=== PATIENT | male | born 1950 | race Two or more races ===

== ENCOUNTER 2016-10-18 14:38 | Emergency (ER) | payer BC ==
[2016-10-18] MEDS ORDERED: Ondansetron INJ* 2 MG/ML VIAL IV ONE (16:40)
[2016-10-18] MEDS ORDERED: NS 0.9% 1000 ML* 1,000 ML IV ONE (16:40)
[2016-10-18] MEDS ORDERED: Famotidine IV* 10 MG/ML 2 ML (20 mg) IV SLOW PU ONE (16:41)
--- NOTE | 2016-10-18 17:14 | RAD ---
INDICATION: Abdominal pain. COMPARISON: There are no prior studies available for comparison. TECHNIQUE: Supine and upright views of the abdomen were obtained. FINDINGS: The small bowel and colon appear nondistended. No free intraperitoneal air is seen. IMPRESSION: NO EVIDENCE FOR ACUTE FINDING.
[2016-10-18 17:18] LABS: Hematocrit 46 % (42-52); Hemoglobin 15.8 g/dl (14.0-18.0); Mean Corpuscular HGB Conc 34 g/dl (31-36); Mean Corpuscular Hemoglobin 32 pg (27-31); Mean Corpuscular Volume 93 fL (80-94); Mean Platelet Volume 7 um3 (7.4-10.4); Red Blood Count 4.96 10^6/ul (4.0-5.4); Red Cell Distribution Width 13 % (10.5-15); White Blood Count 7.4 10^3/ul (3.5-10.8)
[2016-10-18 17:21] LABS: Urine Bilirubin Negative (Negative); Urine Glucose Negative (Negative); Urine Nitrite Negative (Negative)
[2016-10-18 17:35] LABS: Albumin 4.3 g/dL (3.2-5.2); BUN/Creatinine Ratio 17.5 (8-20); C Reactive Protein 28.28 mg/L (< 5.00); Calcium 9.4 mg/dL (8.6-10.3); EGFR African American 78.4 (>60); Globulin 2.8 g/dL (2-4); Magnesium 2.1 mg/dL (1.9-2.7); Potassium 3.8 mmol/L (3.5-5.0); Total Bilirubin 0.7 mg/dL (0.2-1.0); Total Protein 7.1 g/dL (6.4-8.9)
[2016-10-18 19:09] VITALS: BP 136/97
--- NOTE | 2016-10-19 17:32 | ED ---
Mary Gore Thomas, scribed for Ronny Kunz MD on 10/18/16 at 1644 . Abdominal Pain/Male - HPI Summary HPI Summary: The pt is a 66 y/o M presenting to the ED c/o lower abd pain that began last night. The pain is described as bloating. The pain is rated 7/10. The pain is aggravated and alleviated by nothing. The patient has treated the pain with his Rizatripan prior to arrival. He also took gas medications to no relief of pain. Pt additionally c/o JEFF and nausea. Pt denies diarrhea, constipation, fevers, vomiting, chills, CP, and SOB. PMHx: polymyalgia rheumatic and migraines. PSHx: total knee replacement, shoulder repair. SHx: no smoking, occasional alcohol use , no illicit drug use. FHx: [place]. He has been taking normal BMs recently. He denies eating any unusual foods recently. He has never experienced symptoms like these before. 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 - History of Current Complaint Chief Complaint: EDAbdPain Stated Complaint: ABD PAIN, Time Seen by Provider: 10/18/16 16:23 Hx Obtained From: Patient, Family/Director Of Cardiac Cath Lab - accompanied by Onset/Duration: Lasting Days - onset yesterday, Still Present Timing: Constant Pain Intensity: 7 Pain Scale Used: 0-10 Numeric Location: Other - lower abd Radiates: No Character: Cramping Aggravating Factor(s): Nothing Alleviating Factor(s): Nothing Associated Signs And Symptoms: Positive: Nausea, Other - POS: JEFF; NEG: chills, SOB. Negative: Fever, Chest Pain, Constipation, Vomiting, Diarrhea - Allergies/Home Medications Allergies/Adverse Reactions: Allergies Allergy/AdvReac Type Severity Reaction Status Date / Time Prochlorperazine Allergy Tingling Verified 10/18/16 14:43 [From Compazine] PMH/Surg Hx/FS Hx/Imm Hx Previously Healthy: No Endocrine/Hematology History: Denies: Hx Diabetes, Hx Thyroid Disease Cardiovascular History: Denies: Hx Angina, Hx Hypertension Respiratory History: Denies: Hx Chronic Obstructive Pulmonary Disease (COPD) Musculoskeletal History: Reports: Other Musculoskeletal History - Hx polymyalgia rheumatica Denies: Hx Rheumatoid Arthritis, Hx Osteoporosis Neurological History: Reports: Hx Migraine - Surgical History Surgery Procedure, Year, and Place: knee replacement, shoulder repair Infectious Disease History: No Infectious Disease History: Denies: Hx Clostridium Difficile, Hx Hepatitis, Hx Human Immunodeficiency Virus (HIV), Hx of Known/Suspected MRSA, Hx Shingles, Hx Tuberculosis, Traveled Outside the US in Last 30 Days - Family History Known Family History: Positive: Other - POS: [place] - Social History Alcohol Use: Occasionally Substance Use Type: Reports: None Smoking Status (MU): Never Smoked Tobacco Review of Systems Negative: Chills Negative: Chest Pain Negative: Shortness Of Breath Positive: Abdominal Pain - 7/10, cramping, onset last night, Nausea. Negative: Vomiting, Diarrhea, Other - NEG: constipation Positive: Headache All Other Systems Reviewed And Are Negative: Yes Physical Exam - Summary Physical Exam Summary: VITAL SIGNS: Reviewed. GENERAL: Patient is a well-developed and nourished male who is lying comfortable in the stretcher. ~Patient is not in any acute respiratory distress. HEAD AND FACE: Normocephalic and atraumatic. EYES: PERRLA, EOMI x 2, No injected conjunctiva. EARS: Hearing grossly intact. Ear canals and tympanic membranes are WNL. MOUTH: Oropharynx within normal limits. NECK: Supple, trachea is midline, no adenopathy, no JVD. CHEST: Symmetric, no tenderness at palpation LUNGS: Clear to auscultation bilaterally. No wheezing or crackles. CVS: RRR, S1 and S2 present, no murmurs or gallops appreciated. ABDOMEN: Soft, non-tender. No signs of distention. Positive bowel sounds. No rebound no guarding, and no masses palpated. No abdominal bruit or pulsations. EXTREMITIES: FROM in all major joints, no edema, no cyanosis or clubbing. NEURO: Alert and oriented x 3. No acute neurological deficits. Speech is normal. SKIN: Dry and warm Triage Information Reviewed: Yes Vital Signs On Initial Exam: Initial Vitals Temp Pulse Resp BP Pulse Ox 97.7 F 68 16 158/90 95 10/18/16 14:43 10/18/16 14:43 10/18/16 14:43 10/18/16 14:43 10/18/16 14:43 Vital Signs Reviewed: Yes Diagnostics - Vital Signs Vital Signs Temp Pulse Resp BP Pulse Ox 10/18/16 16:11 97.6 F 63 16 186/91 93 10/18/16 14:43 97.7 F 68 16 158/90 95 - Laboratory Lab Results: Lab Results 10/18/16 10/18/16 10/18/16 Range/Units 17:06 17:06 17:06 WBC 7.4 (3.5-10.8) 10^3/ul RBC 4.96 (4.0-5.4) 10^6/ul Hgb 15.8 (14.0-18.0) g/dl Hct 46 (42-52) % MCV 93 (80-94) fL MCH 32 H (27-31) pg MCHC 34 (31-36) g/dl RDW 13 (10.5-15) % Plt Count 149 L (150-450) 10^3/ul MPV 7 L (7.4-10.4) um3 Neut % (Auto) 77.3 (38-83) % Lymph % (Auto) 12.0 L (25-47) % Kimble % (Auto) 8.7 (1-9) % Eos % (Auto) 1.3 (0-6) % Baso % (Auto) 0.7 (0-2) % Absolute Neuts (auto) 5.7 (1.5-7.7) 10^3/ul Absolute Lymphs (auto) 0.9 L (1.0-4.8) 10^3/ul Absolute Monos (auto) 0.6 (0-0.8) 10^3/ul Absolute Eos (auto) 0.1 (0-0.6) 10^3/ul Absolute Basos (auto) 0.1 (0-0.2) 10^3/ul Absolute Nucleated RBC 0.01 10^3/ul Nucleated RBC % 0.2 Sodium 139 (133-145) mmol/L Potassium 3.8 (3.5-5.0) mmol/L Chloride 105 (101-111) mmol/L Carbon Dioxide 28 (22-32) mmol/L Anion Gap 6 (2-11) mmol/L BUN 21 (6-24) mg/dL Creatinine 1.20 H (0.67-1.17) mg/dL Est GFR ( Amer) 78.4 (>60) Est GFR (Non-Af Amer) 61.0 (>60) BUN/Creatinine Ratio 17.5 (8-20) Glucose 99 (70-100) mg/dL Lactic Acid 0.8 (0.5-2.0) mmol/L Calcium 9.4 (8.6-10.3) mg/dL Magnesium 2.1 (1.9-2.7) mg/dL Total Bilirubin 0.70 (0.2-1.0) mg/dL AST 25 (13-39) U/L ALT 23 (7-52) U/L Alkaline Phosphatase 64 (34-104) U/L Troponin I 0.00 (<0.04) ng/mL C-Reactive Protein 28.28 H (< 5.00) mg/L B-Natriuretic Peptide ( - 100) pg/mL Total Protein 7.1 (6.4-8.9) g/dL Albumin 4.3 (3.2-5.2) g/dL Globulin 2.8 (2-4) g/dL Albumin/Globulin Ratio 1.5 (1-3) Amylase 27 L (29-103) U/L Lipase 13 (11.0-82.0) U/L Urine Color Urine Appearance Urine pH (5-9) Ur Specific [place] (1.010-1.030) Urine Protein (Negative) Urine Ketones (Negative) Urine Blood (Negative) Urine Nitrate (Negative) Urine Bilirubin (Negative) Urine Urobilinogen (Negative) Ur Leukocyte Esterase (Negative) Urine Glucose (Negative) 10/18/16 10/18/16 Range/Units 17:06 17:09 WBC (3.5-10.8) 10^3/ul RBC (4.0-5.4) 10^6/ul Hgb (14.0-18.0) g/dl Hct (42-52) % MCV (80-94) fL MCH (27-31) pg MCHC (31-36) g/dl RDW (10.5-15) % Plt Count (150-450) 10^3/ul MPV (7.4-10.4) um3 Neut % (Auto) (38-83) % Lymph % (Auto) (25-47) % Kimble % (Auto) (1-9) % Eos % (Auto) (0-6) % Baso % (Auto) (0-2) % Absolute Neuts (auto) (1.5-7.7) 10^3/ul Absolute Lymphs (auto) (1.0-4.8) 10^3/ul Absolute Monos (auto) (0-0.8) 10^3/ul Absolute Eos (auto) (0-0.6) 10^3/ul Absolute Basos (auto) (0-0.2) 10^3/ul Absolute Nucleated RBC 10^3/ul Nucleated RBC % Sodium (133-145) mmol/L Potassium (3.5-5.0) mmol/L Chloride (101-111) mmol/L Carbon Dioxide (22-32) mmol/L Anion Gap (2-11) mmol/L BUN (6-24) mg/dL Creatinine (0.67-1.17) mg/dL Est GFR ( Amer) (>60) Est GFR (Non-Af Amer) (>60) BUN/Creatinine Ratio (8-20) Glucose (70-100) mg/dL Lactic Acid (0.5-2.0) mmol/L Calcium (8.6-10.3) mg/dL Magnesium (1.9-2.7) mg/dL Total Bilirubin (0.2-1.0) mg/dL AST (13-39) U/L ALT (7-52) U/L Alkaline Phosphatase (34-104) U/L Troponin I (<0.04) ng/mL C-Reactive Protein (< 5.00) mg/L B-Natriuretic Peptide 30 ( - 100) pg/mL Total Protein (6.4-8.9) g/dL Albumin (3.2-5.2) g/dL Globulin (2-4) g/dL Albumin/Globulin Ratio (1-3) Amylase (29-103) U/L Lipase (11.0-82.0) U/L Urine Color Yellow Urine Appearance Clear Urine pH 6.0 (5-9) Ur Specific [place] 1.013 (1.010-1.030) Urine Protein Negative (Negative) Urine Ketones Negative (Negative) Urine Blood Negative (Negative) Urine Nitrate Negative (Negative) Urine Bilirubin Negative (Negative) Urine Urobilinogen Negative (Negative) Ur Leukocyte Esterase Negative (Negative) Urine Glucose Negative (Negative) Result Diagrams: 10/18/16 17:06 10/18/16 17:06 Lab Statement: Any lab studies that have been ordered have been reviewed, and results considered in the medical decision making process. - Radiology XR Abdomen Xray Interpretation: No Acute Changes - No evidence for acute finding Radiology Interpretation Completed By: Radiologist - EKG 17:11 Cardiac Rate: Bradycardia - 56 BPM EKG Interpretation: Sinus bradycardia with no ST elevations. Abdominal Pain Fem Course/Dx - Course Assessment/Plan: The pt is a 66 y/o M presenting to the ED c/o lower abd pain that began last night. The pain is described as bloating. The pain is rated 7/ 10. The pain is aggravated and alleviated by nothing. The patient has treated the pain with his Rizatripan prior to arrival. He also took gas medications to no relief of pain. Pt additionally c/o JEFF and nausea. Pt denies diarrhea, constipation, fevers, vomiting, chills, CP, and SOB. PMHx: polymyalgia rheumatic and migraines. PSHx: total knee replacement, shoulder repair. SHx: no smoking, occasional alcohol use, no illicit drug use. FHx: [place]. He has been taking normal BMs recently. He denies eating any unusual foods recently. He has never experienced symptoms like these before. 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 The patients tests are without significant abnormality except creatinine 1.20 and CRP 28.28. The UA is negative and the Abdominal XR is negative. In the ED course, the patient was given IV fluids, Pepcid for indigestion, and Zofran for nausea. After these medications, the patients symptoms have improved. I discussed all the findings and test results with the patient. Patient was instructed to return to the emergency room immediately if any of the symptoms return or worsens. Plan of care was discussed with the patient and understands and agrees. All questions were answered at patient satisfaction. There were no further complaints or concerns. - Diagnoses Provider Diagnoses: Abdominal pain, Nausea Discharge - Discharge Plan Condition: Stable Disposition: HOME Prescriptions: Ondansetron TAB* [Zofran 4 MG Tab*] 4 mg PO Q6H PRN #12 tab PRN Reason: Vomiting Pantoprazole TAB (NF) [Protonix TAB (NF)] 40 mg PO DAILY #14 tab Patient Education Materials: Abdominal Pain (ED), Acute Nausea and Vomiting (ED ) Referrals: Yaw Blair MD [Primary Care Provider] - 3 Days The documentation as recorded by the Mary rose Thomas accurately reflects the service I personally performed and the decisions made by me, Ronny Kunz MD.
== END 2016-10-18 19:08 | disposition home or self-care (01) ==
LOC: ED 14:38
DX: R10.30 Lower abdominal pain, unspecified (principal); R11.0 Nausea; R00.1 Bradycardia, unspecified; R51 Headache; M35.3 Polymyalgia rheumatica; Z96.659 Presence of unspecified artificial knee joint
CPT/HCPCS: 36415; 74020; 80053; 81003; 82150; 83605; 83690; 83735; 83880; 84484; 85025; 86140; 93005; 96361; 96374; 96375; 99283; J2405

== ENCOUNTER 2017-07-28 06:37 | Day surgery (SDC) | payer BC ==
[2017-07-28] MEDS ORDERED: Ketorolac INJ* 30 MG/ML 1 ML VIAL IV PUSH ONE (07:06)
[2017-07-28] MEDS ORDERED: Ondansetron ODT TAB* 4 MG PO ONE (07:06)
[2017-07-28] MEDS ORDERED: NS 0.9% 1000 ML* 1,000 ML IV ONE ×3 (07:07→09:49)
--- NOTE | 2017-07-28 07:11 | ED ---
GI/ HPI - HPI Summary HPI Summary: 66-year-old male presents with abdominal pain for the past couple hours. He states that [place] He states his pain seemed to resolve pain but he never saw that he passed the stone. He states he woke up this morning with intense pain in his lower abdomen. He states pain has since decreased without taking anything. He denies any blood in his urine. Denies any dysuria. Denies any fevers. He admits to nausea vomiting. Denies any diarrhea constipation. He denies any chest pain shortness breath. This is his first kidney stone. Kidney stone was 4 mm. - History of Current Complaint Chief Complaint: EDAbdPain Time Seen by Provider: 07/28/17 06:51 Stated Complaint: FLANK PAIN Pain Intensity: 7 - Allergy/Home Medications Allergies/Adverse Reactions: Allergies Allergy/AdvReac Type Severity Reaction Status Date / Time prochlorperazine Allergy Tingling Verified 07/28/17 07:26 [From Compazine] Home Medications: Home Medications Calcium Carbonate [Calcium] 500 mg PO DAILY 07/28/17 [History Confirmed 07/28/17 ] Cholecalciferol TAB* [Vitamin D TAB*] 2,000 units PO MOWEFR 07/28/17 [History Confirmed 07/28/17] Ibuprofen TAB* [Advil TAB*] 600 mg PO Q8H PRN 07/28/17 [History Confirmed ] Magnesium Oxide TAB* [MagOx 400 TAB*] 500 mg PO DAILY 07/28/17 [History Confirmed 07/28/17] Multivitamins/Minerals TAB* [Theragran/minerals TAB*] 1 tab PO DAILY 07/28/17 [ History Confirmed 07/28/17] [place]-3 Fatty Acids (Nf) [Fish Oil (NF)] 1,000 mg PO DAILY 07/28/17 [History Confirmed 07/28/17] Propranolol TAB* [Inderal TAB*] 10 mg PO BID 07/28/17 [History Confirmed ] Rizatriptan (NF) [Maxalt-[employer] (NF)] 10 mg PO DAILY PRN 07/28/17 [History Confirmed 07/28/17] PMH/Surg Hx/FS Hx/Imm Hx Endocrine/Hematology History: Denies: Hx Diabetes, Hx Thyroid Disease Cardiovascular History: Denies: Hx Angina, Hx Hypertension Respiratory History: Denies: Hx Chronic Obstructive Pulmonary Disease (COPD) Musculoskeletal History: Reports: Other Musculoskeletal History - Hx polymyalgia rheumatica Denies: Hx Rheumatoid Arthritis, Hx Osteoporosis Neurological History: Reports: Hx Migraine - Surgical History Surgery Procedure, Year, and Place: knee replacement, shoulder repair Infectious Disease History: No Infectious Disease History: Denies: Hx Clostridium Difficile, Hx Hepatitis, Hx Human Immunodeficiency Virus (HIV), Hx of Known/Suspected MRSA, Hx Shingles, Hx Tuberculosis, Traveled Outside the US in Last 30 Days - Family History Known Family History: Positive: Other - POS: [place] - Social History Alcohol Use: Occasionally Substance Use Type: Reports: None Smoking Status (MU): Never Smoked Tobacco Review of Systems Negative: Fever Negative: Chest Pain Negative: Shortness Of Breath Positive: Abdominal Pain. Negative: Vomiting, Diarrhea, Nausea All Other Systems Reviewed And Are Negative: Yes Physical Exam Triage Information Reviewed: Yes Vital Signs On Initial Exam: Initial Vitals Temp Pulse Resp BP Pulse Ox 97.0 F 69 16 142/85 96 07/28/17 06:40 07/28/17 06:40 07/28/17 06:40 07/28/17 06:40 07/28/17 06:40 Vital Signs Reviewed: Yes Appearance: Positive: Well-Appearing Skin: Positive: Warm, Dry Head/Face: Positive: Normal Head/Face Inspection Eyes: Positive: Normal, Conjunctiva Clear ENT: Positive: Pharynx normal Respiratory/Lung Sounds: Positive: Clear to Auscultation, Breath Sounds Present Cardiovascular: Positive: Normal, RRR Abdomen Description: Positive: Nontender, Soft, Other: - minimially tenderness LLQ. Negative: CVA Tenderness (L) Bowel Sounds: Positive: Present Musculoskeletal: Positive: Normal Neurological: Positive: Normal Psychiatric: Positive: Normal Diagnostics - Vital Signs Vital Signs Temp Pulse Resp BP Pulse Ox 07/28/17 06:40 97.0 F 69 16 142/85 96 - Laboratory Result Diagrams: 07/28/17 07:30 07/28/17 10:51 Lab Statement: Any lab studies that have been ordered have been reviewed, and results considered in the medical decision making process. - Radiology abd Xray Interpretation: Positive (See Comments) - IMPRESSION: 1. 5 mm left UVJ calculus with mild obstructive findings. 2. Small pericardial effusion. 3. Low suspicion, 6 mm hepatic hypodensity likely representing a cyst or hemangioma. Radiology Interpretation Completed By: Radiologist SEAN Course/Dx - Course Course Of Treatment: 66-year-old male presents with abdominal pain for the past couple hours. He states that he was diagnosed kidney stone two weeks ago down [facility]. He states his pain seemed to resolve pain but he never saw that he passed the stone. He states he woke up this morning with intense pain in his lower abdomen. He states pain has since decreased without taking anything. He denies any blood in his urine. Denies any dysuria. Denies any fevers. He admits to nausea vomiting. Denies any diarrhea constipation. He denies any chest pain shortness breath. This is his first kidney stone. Kidney stone was 4 mm. on exam has mild tenderness left lower quadrant. ct shows 5mm stone at UVJ. urine no infection. no fever or wbc count. patient kidney functin is elevated. spoke with kulwinder said that needs fluid and then creantine needs repeated. dr miramontes will take to OR today. - Diagnoses Differential Diagnoses - Male: Diverticulitis, Ureteral Calculi, Urinary Tract Infection Provider Diagnoses: Urethral stone Discharge - Sign-Out/Discharge Documenting (check all that apply): Discharge/Admit/Transfer - Discharge Plan Condition: Good Disposition: ADMITTED TO [facility] Referrals: Yaw Blair MD [Primary Care Provider] - - Billing Disposition and Condition Condition: GOOD [facility] [place]
--- NOTE | 2017-07-28 07:41 | RAD ---
INDICATION: Left flank pain COMPARISON: None TECHNIQUE: Noncontrast axial source images were acquired from the level hemidiaphragms to the symphysis pubis as part of CT imaging for renal stone. Lung bases: The lung bases are clear. There is a small pericardial effusion at the base the heart Liver: The liver is normal in size. Noncontrast imaging shows a low suspicion 6 mm hypodensity in the right hepatic lobe near the dome. This likely a cyst or hemangioma. Gallbladder: There are no calcified gallstones. There is no evidence of wall thickening or pericholecystic fluid.. Spleen: The spleen is normal in size. The noncontrast CT appearance is normal. Pancreas: Noncontrast imaging shows no pancreatic mass or ductal dilitation. Adrenal glands: No masses are identified. Kidneys/Bladder: There is mild left-sided hydronephrosis and hydroureter with a 5 mm calculus at the left UVJ. There are no other calcifications of urinary significance. There is no renal mass identified on noncontrast imaging. There is mild left-sided perinephric stranding Adenopathy: There is no evidence of intraperitoneal or retroperitoneal adenopathy. Evaluation is limited without oral contrast. Fluid collections: There are no significant free or localized fluid collections. Vessels: The aorta and iliac vessels are normal in caliber. There are no significant atherosclerotic changes. The IVC appears normal Pelvic organs: The prostate and seminal vesicles appear normal GI tract: Evaluation of the bowel is limited without oral contrast. The stomach, small bowel, and lower GI tract appear grossly normal. There are no obstructive findings. The appendix is visualized and appears normal. Soft tissues: No soft tissue abnormalities of the extraperitoneal abdomen or pelvis are identified. Osseous structures: There are no acute osseous findings. IMPRESSION: 1. 5 mm left UVJ calculus with mild obstructive findings. 2. Small pericardial effusion. 3. Low suspicion, 6 mm hepatic hypodensity likely representing a cyst or hemangioma.
[2017-07-28 07:42] LABS: ABS Basophils 0.1 10^3/ul (0-0.2); ABS Eosinophils 0.1 10^3/ul (0-0.6); ABS Monocytes 0.5 10^3/ul (0-0.8); ABS Neutrophils 5.6 10^3/ul (1.5-7.7); ABS Nucleated RBC 0 10^3/ul; Eosinophil % 1.8 % (0-6); Hematocrit 41 % (42-52); Hemoglobin 14.6 g/dl (14.0-18.0); Lymphocyte % 13.9 % (25-47); Mean Corpuscular HGB Conc 36 g/dl (31-36); Mean Corpuscular Hemoglobin 33 pg (27-31); Mean Corpuscular Volume 91 fL (80-94); Mean Platelet Volume 7.3 um3 (7.4-10.4); Nucleated Red Blood Cells % 0.1; Platelet Count 147 10^3/ul (150-450); Red Blood Count 4.49 10^6/ul (4.0-5.4); Red Cell Distribution Width 13 % (10.5-15); White Blood Count 7.3 10^3/ul (3.5-10.8)
[2017-07-28 07:47] LABS: Urine Appearance Clear; Urine Blood 1+ (Negative); Urine Color Yellow; Urine Ketones Negative (Negative); Urine Protein Negative (Negative); Urine Specific Gravity 1.021 (1.010-1.030); Urine Urobilinogen Negative (Negative)
[2017-07-28] MEDS ORDERED: Tamsulosin CAP* 0.4 MG PO ONE (08:38)
[2017-07-28] MEDS ORDERED: Morphine VIAL* 4 MG/ML VIAL (1 ml vial) IV ONE ×2 (10:00→10:25)
[2017-07-28 11:34] LABS: EGFR Non-African American 40.5 (>60)
[2017-07-28] MEDS ORDERED: HYDROmorphone INJ* 2 MG/ML CARPUJECT SYRINGE ONE (13:45)
[2017-07-28] MEDS ORDERED: cefTRIAXone(*) 2 GM ADDV.VIAL IVPB ONE (13:45)
[2017-07-28] MEDS ORDERED: Iohexol 180 (CONTRAST) 10 ML SDV IV ONE (14:42)
[2017-07-28] MEDS ORDERED: Famotidine IV* 10 MG/ML 2 ML (20 mg) IV ONE (14:50)
[2017-07-28] MEDS ORDERED: Famotidine IV* 10 MG/ML 2 ML (20 mg) ONE (14:58)
[2017-07-28] MEDS ORDERED: Ondansetron SYRINGE* 4 MG/2 ML SYRINGE (from 40mg/20ml vial) IV PRN (15:17)
[2017-07-28] MEDS ORDERED: fentaNYL* 50 MCG/ML 2 ML VIAL (100 MCG VIAL) ONE ×2 (16:30→17:36)
[2017-07-28] MEDS ORDERED: Lidocaine 2% PF * 5 ML VIAL ONE (16:30)
[2017-07-28] MEDS ORDERED: Propofol* 10 MG/ML 20 ML BTL IV PUSH ONE (16:30)
[2017-07-28] MEDS ORDERED: Ondansetron ODT TAB* 4 MG ONE ×2 (16:30→19:01)
[2017-07-28] MEDS ORDERED: Midazolam* 1 MG/ML 5 ML VIAL (5 MG) ONE (16:30)
[2017-07-28] MEDS ORDERED: Dexamethasone IV* 4 MG/ML 1 ML (4 MG) ONE (16:30)
[2017-07-28] MEDS ORDERED: Phenylephrine IV* 40 MCG/ML 10 ML SYRINGE ONE (17:16)
[2017-07-28] MEDS ORDERED: Levofloxacin 500 MG IVPREMIX(* 500 MG/100 ML BAG IVPB ONE (17:23)
[2017-07-28] MEDS ORDERED: oxyCODONE/Acetamin 5/325 MG* TAB PO PRN (17:34)
[2017-07-28] MEDS ORDERED: Naloxone* 0.4 MG/ML 1 ML VIAL IV PRN (17:34)
[2017-07-28] MEDS ORDERED: fentaNYL* 50 MCG/ML 2 ML VIAL (100 MCG VIAL) IV PRN (17:34)
[2017-07-28] MEDS ORDERED: Ondansetron ODT TAB* 4 MG PO PRN (17:34)
[2017-07-28] MEDS ORDERED: Tamsulosin CAP* 0.4 MG ONE (18:11)
[2017-07-28 18:34] VITALS: BP 131/82
--- NOTE | 2017-07-29 01:12 | HP ---
CC: Dr. Blair; Dr. Marcus More * ADMITTING HISTORY AND PHYSICAL: DATE OF ADMISSION: 07/28/17 ADMITTING DIAGNOSES: 1. Left hydronephrosis. 2. Calculus, left distal ureter. 3. Increased serum creatinine. PLANNED PROCEDURE: Left ureteroscopy, possible laser and stent insertion. HISTORY OF PRESENT ILLNESS: Sumanth Jeter is a 66-year-old gentleman, who initially was evaluated in [place] 3 weeks ago for left flank pain. He was noted to have a 4 to 5 mm calculus in the left distal ureter and tried conservative management with increased fluids and Flomax. His pain got better up until a day or so ago when he had recurrence of left flank pain and nausea and a repeat CT scan revealed persistent 5 mm calculus in the left distal ureter with increased serum creatinine. He is now being brought in for left ureteroscopy. PAST MEDICAL HISTORY: Significant for polymyalgia rheumatica. MEDICATIONS ON ADMISSION: 1. Calcium carbonate 500 mg daily. 2. Cholecalciferol (vitamin D) tablets 2000 units daily. 3. Ibuprofen 600 mg q.8 hours p.r.n. 4. Magnesium oxide 500 mg daily. 5. Multivitamins. 6. Propranolol 10 mg b.i.d. 7. Maxalt 10 mg daily p.r.n. ALLERGIES: COMPAZINE. REVIEW OF SYSTEMS: He denies any chest pain or shortness of breath. There is no history of diabetes mellitus or any other major systemic illness. PHYSICAL EXAMINATION GENERAL: Reveals a pleasant middle-aged gentleman. VITAL SIGNS: Blood pressure is 138/75, pulse rate 58 per minute, respirations 18 per minute, temperature 36.8, oxygen saturation 98% on room air. LUNGS: Clear bilaterally. CARDIOVASCULAR: Regular rate and rhythm. S1, S2. ABDOMEN: Soft with mild left flank tenderness. IMPRESSION AND PLAN: I reviewed the imaging and lab studies and had a detailed discussion with the patient and family. I discussed the option of continuing conservative management, also discussed left ureteroscopy, laser and stent insertion. Given the increased serum creatinine and the fact that the stone has not changed position in 3 weeks, he elected to proceed with left ureteroscopy and is now being brought in for the same. [id number]/[facility] [place] #: [id number] [facility]
--- NOTE | 2017-07-29 07:46 | RAD ---
INDICATION: Left-sided hydronephrosis COMPARISON: CT July 28, 2017 FINDINGS: 5 seconds of fluoroscopy were provided for the urology department. Fluoroscopic spot imaging of the abdomen were obtained for operative control and show left ureteral stent placement . CPT II Codes: G9500 (fluoro time doc)
--- NOTE | 2017-07-30 00:12 | OP ---
CC: Dr. Blair * DATE OF OPERATION: 07/28/17 - [facility] DATE OF : 54 SURGEON: Marcus More MD ANESTHESIA: General. ANESTHESIOLOGIST: Dr. Jang. PRE-OP DIAGNOSES: 1. Left hydronephrosis. 2. Calculus, left ureter. POST-OP DIAGNOSES: 1. Left hydronephrosis. 2. Calculus, left ureter. OPERATIVE PROCEDURES: Cystoscopy, left retrograde pyelogram, left ureteroscopy , laser lithotripsy of left ureteral calculus and removal of calculus fragments and left stent insertion. COMPLICATIONS: None. OPERATIVE FINDINGS: 1. Mildly enlarged prostate with some chronic inflammatory changes noted in prostatic urethra. 2. Approximately 6 mm obstructing calculus left distal ureter. STENT USED: 6-Belarusian stent left ureter. POSTOPERATIVE CONDITION: Stable. INDICATIONS: Sumanth Jeter is a 66-year-old gentleman who initially was evaluated in [place] 3 weeks ago for left-sided pain and noted to have a 4 to 5 mm calculus in the left distal ureter. The pain subsided and then recurred prompting another CT scan done this time in [place], which revealed a persistent calculus in the same position. Also, he was noted to have an elevated creatinine and is now being brought in for management of the calculus. DESCRIPTION OF PROCEDURE: After induction of general anesthesia, the patient was placed in dorsal lithotomy position. Sequential compression devices were in place and functioning. Initial cystoscopy revealed a normal-appearing urethra, mildly enlarged prostate with some chronic inflammatory changes noted in the prostatic urethra. The bladder was examined and was unremarkable. A guidewire was introduced into the left ureter and after some initial manipulation advanced proximally. Retrograde pyelogram revealed left hydronephrosis. A 6-Belarusian semi- rigid ureteroscope was introduced and advanced under direct vision. About 1 to 2 cm above the ureterovesical junction , a 6-mm calculus was noted with some inflammatory response. Using a 550 micron Holmium laser this was successfully broken up into multiple fragments, which were then retrieved using the 3 pronged grasper. At the end of the procedure there were no sizable fragments remaining. A 6-Belarusian stent was introduced and positioned under fluoroscopy with good proximal and distal positioning obtained. Patient tolerated the procedure satisfactorily and was transferred back to the recovery area in stable condition. [id number]/[facility] #: [id number] [facility]
== END 2017-07-28 19:14 | disposition home or self-care (01) ==
LOC: ED 06:37 → SDS 13:45
PROVIDERS: ATTEND Urology
DX: N13.2 Hydronephrosis with renal and ureteral calculous obstruction (principal); R10.32 Left lower quadrant pain; I31.3 Pericardial effusion (noninflammatory); K76.89 Other specified diseases of liver; R25.1 Tremor, unspecified; G43.909 Migraine, unspecified, not intractable, without status migrainosus
CPT/HCPCS: 36415; 74176; 74420; 80053; 81003; 81015; 82365; 82565; 83690; 85025; 86141; 87086; 88300; 99284; A9270-GY; C1876; J0696; J1100; J1170; J1885; J1956; J2250; J2270; J2704; J3010

== ENCOUNTER 2018-01-04 18:00 | Emergency (ER) | payer MEDICARE, BC ==
[2018-01-04 18:14] VITALS: BP 131/86
--- NOTE | 2018-01-04 19:16 | UC ---
Shoulder Pain HPI - HPI Summary HPI Summary: 67-year-old male comes in with a chief complaint of left shoulder pain. Patient was playing soccer tonight and when he slipped and fell he landed on his left elbow which jammed his left shoulder. He felt as if his shoulder was dislocated. A fellow player pulled on his arm and then the arm felt much better. He now can move the arm but with a great deal of pain in the left shoulder joint itself. When he rest the shoulder the pain is much less. Pain does radiate down into the hand he denies any weakness or numbness or any feeling of cold extremity. He did have surgery on that left shoulder when he was 20 years old - History of Current Complaint Chief Complaint: UCUpperExtremity Stated Complaint: L ARM INJURY Time Seen by Provider: 01/04/18 18:52 Pain Intensity: 6 - Allergies/Home Medications Allergies/Adverse Reactions: Allergies Allergy/AdvReac Type Severity Reaction Status Date / Time prochlorperazine Allergy Tingling Verified 01/04/18 18:15 [From Compazine] PMH/Surg Hx/FS Hx/Imm Hx Cardiovascular History: Hypertension GI/ History: Gastroesophageal Reflux - Surgical History Surgical History: Yes Surgery Procedure, Year, and Place: knee replacement, shoulder repair - Family History Known Family History: Positive: Other - POS: [place] - Social History Alcohol Use: Weekly Substance Use Type: None Smoking Status (MU): Never Smoked Tobacco Review of Systems Constitutional: Negative Skin: Negative Eyes: Negative ENT: Negative Respiratory: Negative Cardiovascular: Negative Gastrointestinal: Negative Motor: Other - SEE HPI Neurovascular: Negative Musculoskeletal: Other: - SEE HPI Neurological: Negative Psychological: Negative Is Patient Immunocompromised?: No All Other Systems Reviewed And Are Negative: Yes Physical Exam Triage Information Reviewed: Yes Appearance: Well-Appearing, Well-Nourished, Pain Distress - MILD Vital Signs: Initial Vital Signs Temp 99.4 F 01/04/18 18:08 Pulse 91 01/04/18 18:08 Resp 16 01/04/18 18:08 BP 131/86 01/04/18 18:08 Pulse Ox 95 01/04/18 18:08 Vital Signs Reviewed: Yes Eye Exam: Normal Eyes: Positive: Conjunctiva Clear Neck exam: Normal Neck: Positive: Supple Respiratory: Positive: Lungs clear, Normal breath sounds, No respiratory distress Cardiovascular: Positive: RRR Musculoskeletal: Positive: Other: - Left shoulder is tender to palpation right at the joint line.. The clavicles are nontender to palpation the elbow wrists and hands are nontender to palpation. Fingers wrist and elbow have full range of motion. No sensation deficit. Normal capillary refill. Normal radial pulse. Left shoulder range of motion is decreased secondary to pain. Neurological Exam: Normal Neurological: Positive: Alert, Muscle Tone Normal Psychological Exam: Normal Psychological: Positive: Normal Response To Family, Age Appropriate Behavior Skin Exam: Normal Shoulder Course/Dx - Course Course Of Treatment: I discussed the x-ray report with the patient. There appears to be some chip fractures versus arthritis shoulder giving question of a Hill-Sachs deformity. By history it sounds like the shoulder was dislocated and relocated. The overall plan is sling and follow-up with orthopedics. We discussed frozen shoulder and how to avoid it with range of motion exercises which we demonstrated. - Differential Dx/Diagnosis Provider Diagnoses: LEFT SHOULDER PAIN Discharge - Sign-Out/Discharge Documenting (check all that apply): Patient Departure All imaging exams completed and their final reports reviewed: No - Discharge Plan Condition: Stable Disposition: HOME Patient Education Materials: Rotator Cuff Injury (ED) Referrals: Yaw Blair MD [Primary Care Provider] - Adam Rodriguez MD [Medical Doctor] - Additional Instructions: FOLLOW UP WITH ORTHOPEDICS. DO THE SHOULDER RANGE OF MOTION EXERCISES TO AVOID FROZEN SHOULDER. GET RECHECKED FOR ANY WORSENING OF YOUR CONDITION OR QUESTIONS OR CONCERNS. - Billing Disposition and Condition Condition: STABLE Disposition: Home
--- NOTE | 2018-01-05 07:55 | RAD ---
HISTORY: PAIN S/P INJURY COMPARISONS: None VIEWS: 5 , Frontal internal rotation, external rotation, outlet, and axillary views of the left shoulder FINDINGS: BONE DENSITY: Normal. BONES: There is postsurgical change to the humeral head. 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 JOINTS: There is moderate osteoarthritis of the AC joint with mild to moderate osteoarthritis of the glenohumeral joint. ALIGNMENT: There is no dislocation. SOFT TISSUES: Unremarkable. OTHER FINDINGS: None. IMPRESSION: POSTSURGICAL AND CHRONIC POSTTRAUMATIC CHANGES WITHOUT ACUTE OSSEOUS INJURY. IF SYMPTOMS PERSIST, RECOMMEND REPEAT IMAGING R0
== END 2018-01-04 19:20 | disposition home or self-care (01) ==
LOC: UCEAST 18:00
DX: M25.512 Pain in left shoulder (principal); Z88.8 Allergy status to other drugs, medicaments and biological substances; Z96.659 Presence of unspecified artificial knee joint
CPT/HCPCS: 99212; G0463

== ENCOUNTER → 2019-02-08 12:50 | Day surgery (SDC) | payer MEDICARE, BC ==
[~2019-02-08 12:50] MED LIST: Acetaminophen TAB* 325 MG ONE; Acetaminophen TAB* 325 MG PO ONE; Buffered Lidocaine 1% SYRIN* 1 ML/SYRINGE INTRADERM ONE; Bupivacaine 0.5%* 50 ML MDV VIAL ONE; DiMENhydriNATE IV* 50 MG/ML VIAL IV PUSH PRN; DiMENhydriNATE IV* 50 MG/ML VIAL ONE; Famotidine IV* 10 MG/ML 2 ML (20 mg) IV ONE; Famotidine IV* 10 MG/ML 2 ML (20 mg) ONE; HYDROcodone/ACETAMIN 5-325 MG* 1 TAB PO PRN; Ketorolac INJ* 30 MG/ML 1 ML VIAL ONE; Lactated Ringers 1000 ML Bag* 1,000 ML IV SCH; Levalbuterol 0.63MG/3ML NEB* UNIT OF USE INH PRN; Lidocaine 2% PF * 5 ML VIAL ONE; Lidocaine 2% PF* 10 ML AMP ONE; Midazolam* 1 MG/ML 2 ML VIAL (2 MG) ONE; Naloxone* 0.4 MG/ML 1 ML VIAL IV PRN; Ondansetron INJ* 2 MG/ML VIAL IV PRN; Ondansetron INJ* 2 MG/ML VIAL ONE; ceFAZolin 2 GM PREMIX in ORs 2 GM/50 ML BAG ONE; fentaNYL* 50 MCG/ML 2 ML VIAL (100 MCG VIAL) IV PRN; fentaNYL* 50 MCG/ML 2 ML VIAL (100 MCG VIAL) ONE
--- NOTE | 2019-02-08 18:06 | OP ---
Operative Report - Blank - Operative Report Date of Operation: 02/08/19 Note: PATIENT: Sumanth Jeter DATE OF : 1950 DATE OF SURGERY: 02/08/2019 SURGEON: Ha Faustin MD WATER FITNESS INSTRUCTOR: CHRISTOPHER Bravo, whos assistance was necessary for positioning , retraction, help with instrumentation, and closure. ANESTHESIOLOGIST: Dr. 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 Both operative and non-operative treatment alternatives were reviewed. Further, the nature and risks of surgery were reviewed in careful detail. Our discussions regarding the risks of surgery included, but were not limited to, infection, wound problems, nerve injury, recurrent neuroma, RSD, persistent symptoms, blood clot, need for further surgery, failure of the surgery, and even the remote chance of catastrophic complication. DESCRIPTION OF PROCEDURE: The patient was seen in the preoperative holding unit and informed written consent was obtained. The appropriate extremity was marked. The patient was then brought to the operating room and carefully positioned on the operating room table. Anesthesia was induced. All bony prominences were padded with great care. A chlorhexidine based pre-scrub was performed followed by a chloraprep prep and drape in standard sterile fashion. A surgical safety pause was then conducted in which we confirmed the appropriate patient, extremity, planned procedure, availability of equipment, indication and administration of prophylactic antibiotics, and DVT prophylaxis in the form of a compression boot on the non-surgical extremity. I began with an Esmarch exsanguination of the limb and placement of an ankle Esmarch tourniquet. I then made an approximately 3 cm incision in the 3-4 intermetatarsal web space dorsally. I carried this dissection down through the soft tissue and dissected down between the metatarsal heads. I utilized a laminar salary and wage administrator to gently spread the metatarsal heads apart. I then placed a [place] elevator underneath the intermetatarsal ligament and transected this sharply. I exposed the interdigital nerve where there was some swelling consistent with a neuroma. I then transected the nerve distally. At this point, I gently pulled traction on the nerve and dissected proximally into the plantar aspect of the foot underneath the interossei and the lumbrical. I then transected the nerve as far proximal as was possible and buried the proximal stump in the deep musculature. At this point, the tourniquet was removed. Hemostasis was obtained and there was no significant bleeding encountered. We then irrigated copiously and closed in layers utilizing 3-0 Monocryl for the subdermal layer and 3-0 nylon for the skin. Sterile dressings were then applied. The patient was then awakened from anesthesia and transferred to the recovery room in stable condition. There were no complications. All needle and sponge counts were correct at the end of the case. ATTESTATION: I attest I was present and scrubbed and performed the critical portions of the procedure myself. POSTOPERATIVE PLAN: The plan is for heel weight-bearing for 2 weeks. Follow-up will be in 2 weeks for likely suture removal. We will then progress weight- bearing.
[2019-02-08 18:24] VITALS: BP 128/64
== END | disposition home or self-care (01) ==
LOC: OR 12:50
PROVIDERS: ATTEND Orthopaedic Surgery
DX: G57.61 Lesion of plantar nerve, right lower limb (principal); Z87.891 Personal history of nicotine dependence; M19.90 Unspecified osteoarthritis, unspecified site; M35.3 Polymyalgia rheumatica
CPT/HCPCS: 88304; A9270-GY; J0690; J1240; J1885; J2001; J2250; J2405; J3010; J3490

== ENCOUNTER 2019-09-27 06:30 | Inpatient (IN) ==
[~2019-09-27 06:30] MED LIST changes: -Acetaminophen TAB* 325 MG ONE; -Acetaminophen TAB* 325 MG PO ONE; +Buffered Lidocaine 1% SYRIN 1 ml INTRADERM ONE; -Buffered Lidocaine 1% SYRIN* 1 ML/SYRINGE INTRADERM ONE; -Bupivacaine 0.5%* 50 ML MDV VIAL ONE; -DiMENhydriNATE IV* 50 MG/ML VIAL IV PUSH PRN; -DiMENhydriNATE IV* 50 MG/ML VIAL ONE; -Famotidine IV* 10 MG/ML 2 ML (20 mg) IV ONE; -Famotidine IV* 10 MG/ML 2 ML (20 mg) ONE; -HYDROcodone/ACETAMIN 5-325 MG* 1 TAB PO PRN; -Ketorolac INJ* 30 MG/ML 1 ML VIAL ONE; -Lactated Ringers 1000 ML Bag* 1,000 ML IV SCH; +Lactated Ringers 1000 ml BAG 1,000 ML IV SCH; -Levalbuterol 0.63MG/3ML NEB* UNIT OF USE INH PRN; -Lidocaine 2% PF * 5 ML VIAL ONE; -Lidocaine 2% PF* 10 ML AMP ONE; -Midazolam* 1 MG/ML 2 ML VIAL (2 MG) ONE; -Naloxone* 0.4 MG/ML 1 ML VIAL IV PRN; -Ondansetron INJ* 2 MG/ML VIAL IV PRN; -Ondansetron INJ* 2 MG/ML VIAL ONE; -ceFAZolin 2 GM PREMIX in ORs 2 GM/50 ML BAG ONE; -fentaNYL* 50 MCG/ML 2 ML VIAL (100 MCG VIAL) IV PRN; -fentaNYL* 50 MCG/ML 2 ML VIAL (100 MCG VIAL) ONE
[2019-09-27] MEDS ORDERED: ROPIVACAINE 5 MG/ML 30 ML BTL (0.5%) ONE (06:56)
[2019-09-27] MEDS ORDERED: ceFAZolin 2 GM PREMIX 2 GM/50 ML BAG ONE (07:01)
[2019-09-27] MEDS ORDERED: Lidocaine 2% PF 5 ML VIAL ONE (07:19)
[2019-09-27] MEDS ORDERED: fentaNYL 100 mcg/2 ml 50 MCG/ML VIAL ONE (07:24)
[2019-09-27] MEDS ORDERED: Midazolam 2 mg/2 ml VIAL 1 mg/ml 2 ml VIAL (2 mg) ONE (07:24)
[2019-09-27] MEDS ORDERED: Bupivacaine 0.5% SDV PF 30ML VIAL ONE ×2 (07:49→08:32)
[2019-09-27] MEDS ORDERED: oxyCODONE/Acetamin 5/325 mg TAB PO PRN (08:47)
[2019-09-27] MEDS ORDERED: Naloxone 0.4 mg VIAL 0.4 mg/ml 1 ml VIAL IV PRN (08:47)
[2019-09-27] MEDS ORDERED: Morphine 4 MG/ML VIAL (1 ml) IV PRN (08:47)
[2019-09-27] MEDS ORDERED: Ondansetron ODT 4 mg TAB 4 MG TAB PO PRN (11:34)
[2019-09-27] MEDS ORDERED: Lactulose 30 ml UDC PO PRN (11:34)
[2019-09-27] MEDS ORDERED: Magnesium Hydroxide LIQ 30 ML UDC PO PRN (11:34)
[2019-09-27] MEDS ORDERED: diPHENhydraMINE 25 mg TAB PO PRN (11:34)
[2019-09-27] MEDS ORDERED: Ondansetron 4 mg VIAL 2 MG/ML 2 ml VIAL IV PRN (11:34)
[2019-09-27] MEDS ORDERED: diPHENhydraMINE IV 50 MG/ML 1 ml VIAL (BENADRYL) IV PRN (11:34)
[2019-09-27] MEDS ORDERED: Morphine 2 MG/ML SYRINGE IV PRN (11:34)
[2019-09-27 11:53] LABS: Urine Appearance Clear; Urine Bilirubin Negative (Negative); Urine Blood Negative (Negative); Urine Color Yellow; Urine Glucose Negative (Negative); Urine Ketones Negative (Negative); Urine Nitrite Negative (Negative); Urine Protein Negative (Negative); Urine Specific Gravity 1.017 (1.010-1.030); Urine Urobilinogen Negative (Negative)
[2019-09-27] MEDS ORDERED: Lactated Ringers 1000 ml BAG 1,000 ML IV SCH (12:00)
[2019-09-27] MEDS ORDERED: Ondansetron 4 mg VIAL 2 MG/ML 2 ml VIAL IV ONE (12:44)
[2019-09-27] MEDS ORDERED: Ondansetron 4 mg VIAL 2 MG/ML 2 ml VIAL ONE (12:45)
[2019-09-27] MEDS: oxyCODONE/Acetamin 5/325 mg TAB PO PRN ×2 (16:02→21:44)
[2019-09-27] MEDS: ceFAZolin 1 GM ADVAN 1 GM in NS 0.9% 50 ML 50 ML IVPB SCH ×2 (16:07→23:53)
[2019-09-27] MEDS: Magnesium Hydroxide LIQ 30 ML UDC PO SCH (21:46)
[2019-09-28] MEDS: oxyCODONE/Acetamin 5/325 mg TAB PO PRN ×4 (02:44→19:46)
[2019-09-28 06:24] LABS: Hematocrit 35 % (42-52); Hemoglobin 12.4 g/dL (14.0-18.0); Mean Platelet Volume 7.8 fL (7.4-10.4); Platelet Count 146 10^3/uL (150-450)
[2019-09-28 06:39] LABS: Calcium 8.4 mg/dL (8.6-10.3); EGFR African American 90.2 (>60); EGFR Non-African American 74.5 (>60); Potassium 4.4 mmol/L (3.5-5.0)
[2019-09-28] MEDS: Vitamin THERAPEUTIC TAB PO SCH (08:52)
[2019-09-28] MEDS: Magnesium Hydroxide LIQ 30 ML UDC PO SCH ×2 (08:53→22:07)
[2019-09-28] MEDS: ceFAZolin 1 GM ADVAN 1 GM in NS 0.9% 50 ML 50 ML IVPB SCH (08:54)
[2019-09-29] MEDS: oxyCODONE/Acetamin 5/325 mg TAB PO PRN (00:20)
[2019-09-29 06:20] LABS: Hematocrit 30 % (42-52); Hemoglobin 11.1 g/dL (14.0-18.0); Mean Platelet Volume 7.7 fL (7.4-10.4); Platelet Count 124 10^3/uL (150-450)
[2019-09-29 08:18] VITALS: BP 124/68
[2019-09-29] MEDS: Magnesium Hydroxide LIQ 30 ML UDC PO SCH (09:34)
[2019-09-29] MEDS: Vitamin THERAPEUTIC TAB PO SCH (09:35)
== END 2019-09-29 11:10 | disposition home health service (06) | DRG 470 ==
LOC: AA 06:30 → SSU 14:03
PROVIDERS: ADMIT Orthopaedic Surgery Adult Reconstructive Orthopaedic Surgery; ATTEND Orthopaedic Surgery Adult Reconstructive Orthopaedic Surgery